=== PATIENT | female | born 1985 | race Two or more races ===

== ENCOUNTER 2017-10-30 06:52 | Outpatient (CLI) | payer MEDICAID | END 2017-10-30 08:21 | disposition home or self-care (01) | LOC: LC 06:52 | PROVIDERS: ATTEND Obstetrics & Gynecology | PROC: 4A1HXCZ Monitoring of Products of Conception, Cardiac Rate, External Approach (ICD-10-PCS; principal; 2017-10-30) | DX: O46.93 Antepartum hemorrhage, unspecified, third trimester (principal); Z3A.39 39 weeks gestation of pregnancy ==

== ENCOUNTER 2017-11-02 04:10 | Outpatient (CLI) | payer MEDICAID ==
--- NOTE | 2017-11-02 04:16 | Non Stress Test Report ---
Non Stress Test Datetime Report Generated by CPN: 11/02/2017 04:15 DEMOGRAPHIC EGA NST: 39.5 INDICATION Indication for Study: Ordered by Provider MONITORING Monitor Explained: Monitor Explained; Test Explained; Patient Verbalized Understanding Time on Monitor: 10/30/2017 06:52 Time off Monitor: 10/30/2017 08:08 NST Duration: 76 NST INTERVENTIONS NST Interventions: PO Hydration; Reposition Patient Physician Notified NST: C Crouch CNM BABY A: [id number] BABY A Movement : Present Contraction Frequency : 8 FHR Baseline : 130 Accelerations : 15X15 Decelerations : None Variability : Moderate 6-25bpm NST Review: Meets Criteria for Reactive NST NST Review and Verified By : Jeannette Overton RN NST Results: Reactive NST REPORT Report Trigger: Send Report
[2017-11-02 05:04] LABS: APPEARANCE,URINE CLEAR; BILIRUBIN,URINE NEGATIVE (NEGATIVE); GLUCOSE, URINE NEGATIVE (NEGATIVE); KETONES,URINE NEGATIVE (NEGATIVE); LEUKOCYTE ESTERASE,URINE NEGATIVE (NEGATIVE); NITRITE,URINE NEGATIVE (NEGATIVE); PROTEIN,URINE NEGATIVE (NEGATIVE); URINE SPECIFIC GRAVITY 1.005; UROBILINOGEN,URINE NEGATIVE mg/dL (<2.0)
[2017-11-02 05:20] LABS: URINE BARBITURATES SCREEN NEGATIVE; URINE METHADONE SCREEN NEGATIVE; URINE OPIATES LOW NEGATIVE; URINE PHENCYCLIDINE SCREEN NEGATIVE
== END 2017-11-02 08:28 | disposition home or self-care (01) ==
LOC: LC 04:10
PROVIDERS: ATTEND Student in an Organized Health Care Education/Training Program
PROC: 4A1HXCZ Monitoring of Products of Conception, Cardiac Rate, External Approach (ICD-10-PCS; principal; 2017-11-02)
DX: O47.1 False labor at or after 37 completed weeks of gestation (principal); O48.0 Post-term pregnancy; Z3A.40 40 weeks gestation of pregnancy
CPT/HCPCS: 59025; 80307; 81001

== ENCOUNTER 2017-11-02 11:42 | Inpatient (IN) | payer MEDICAID ==
[2017-11-02] MEDS ORDERED: PENICILLIN G POTASSIUM 5,000,000 UNIT in DEXTROSE 5%-WATER 100 ML IV ONE (12:20)
[2017-11-02] MEDS ORDERED: PENICILLIN G-K 5 MILLION UNIT VIAL ONE (12:22)
[2017-11-02 12:24] LABS: AMNISURE (ROM) POSITIVE (NEGATIVE)
[2017-11-02 12:27] LABS: APPEARANCE,URINE SLIGHTLY-CLOUDY; BILIRUBIN,URINE NEGATIVE (NEGATIVE); GLUCOSE, URINE NEGATIVE (NEGATIVE); KETONES,URINE NEGATIVE (NEGATIVE); LEUKOCYTE ESTERASE,URINE NEGATIVE (NEGATIVE); NITRITE,URINE NEGATIVE (NEGATIVE); PROTEIN,URINE NEGATIVE (NEGATIVE); URINE SPECIFIC GRAVITY 1.013; UROBILINOGEN,URINE NEGATIVE mg/dL (<2.0)
[2017-11-02] MEDS ORDERED: ONDANSETRON HCL INJ/PF 4 MG/2 ML SDV ONE (12:29)
[2017-11-02 12:40] LABS: URINE BARBITURATES SCREEN NEGATIVE; URINE METHADONE SCREEN NEGATIVE; URINE OPIATES LOW NEGATIVE; URINE PHENCYCLIDINE SCREEN NEGATIVE
[2017-11-02] MEDS ORDERED: EPHEDRINE SULFATE INJ 50 MG/1 ML AMPULE ONE (12:54)
[2017-11-02] MEDS ORDERED: MISOPROSTOL 0.2 MG TABLET ONE ×2 (12:54→17:08)
[2017-11-02] MEDS ORDERED: FENTANYL/BUPIVACAINE/NS/PF 200 MCG/100 ML RTUINJ EPI ONE (12:54)
[2017-11-02] MEDS ORDERED: LIDOCAINE 1% INJ-PF (10 MG/ML) 30 ML SDV ONE (12:54)
[2017-11-02] MEDS ORDERED: BUPIVACAINE HCL 0.25 % INJ/PF (2.5 MG/1 ML) 30 ML VIAL ONE (12:55)
[2017-11-02] MEDS ORDERED: OXYTOCIN/NORMAL SALINE 20 UNIT/1,000 ML RTUINJ ONE ×2 (12:55→16:16)
[2017-11-02] MEDS ORDERED: METHYLERGONOVINE MALEATE INJ/PF 0.2 MG/1 ML AMPULE ONE (12:55)
[2017-11-02] MEDS ORDERED: RINGERS SOLUTION,LACTATED 1,000 ML IV PRN (13:52)
[2017-11-02] MEDS ORDERED: RINGERS SOLUTION,LACTATED 1,000 ML IV ONE (13:52)
[2017-11-02] MEDS ORDERED: BENZOIN/ALOE VERA/STORAX/TOLU TINCTURE 60 ML TP PRN (13:53)
[2017-11-02] MEDS ORDERED: FENTANYL/BUPIVACAINE/NS/PF 200 MCG/100 ML RTUINJ EPI PRN (13:53)
[2017-11-02] MEDS ORDERED: BUPIVACAINE HCL 0.25 % INJ/PF (2.5 MG/1 ML) 30 ML VIAL INFIL ONE (13:53)
[2017-11-02 14:03] LABS: ABSOLUTE LYMPHOCYTES (AUTO) 0.7 10^3/uL (0.5-4.7); ABSOLUTE MONOCYTES (AUTO) 0.2 10^3/uL (0.1-1.4); BASOPHILS % (AUTO) 0.4 % (0-2); EOSINOPHILS % (AUTO) 0.1 % (0-6); HEMATOCRIT 32.1 % (36.0-47.0); HEMOGLOBIN 10.3 g/dL (12.0-15.5); HGB HCT DIFFERENCE -1.2; LYMPHOCYTES % (AUTO) 7.6 % (13-45); MEAN CORPUSCULAR HEMOGLOBIN 24.1 pg (27.0-33.4); MEAN CORPUSCULAR HGB CONC 32.2 g/dL (32.0-36.0); MEAN CORPUSCULAR VOLUME 75 fl (80-97); MONOCYTES % (AUTO) 2.5 % (3-13); RED BLOOD COUNT 4.28 10^6/uL (3.72-5.28); RED CELL DISTRIBUTION WIDTH 20.8 % (11.5-14.0); SEGMENTED NEUTROPHILS % (AUTO) 89.4 % (42-78)
[2017-11-02] MEDS ORDERED: DIPHENHYDRAMINE HCL 50 MG/ML VIAL IV ONE (14:58)
[2017-11-02] MEDS ORDERED: DIPHENHYDRAMINE HCL 50 MG/ML VIAL ONE (15:06)
[2017-11-02] MEDS ORDERED: PENICILLIN G POTASSIUM 2,500,000 UNIT in DEXTROSE 5%-WATER 50 ML IV SCH (16:21)
[2017-11-02] MEDS ORDERED: MEASLES,MUMPS&RUBELLA VACC/PF 0.5 ML VIAL SUBCUT PRN (17:27)
[2017-11-02] MEDS ORDERED: ZOLPIDEM TARTRATE 5 MG TABLET PO PRN (17:27)
[2017-11-02] MEDS ORDERED: OXYTOCIN/NORMAL SALINE 20 UNIT/1,000 ML RTUINJ IV PRN (17:27)
[2017-11-02] MEDS ORDERED: DIPH/PERTUSS(ACELL)/TETANUS VAC/PF 0.5 ML SYR (>=10YO) IM PRN (17:27)
[2017-11-02] MEDS ORDERED: DIBUCAINE 1% OINTMENT 28 GM TP PRN (17:27)
[2017-11-02] MEDS ORDERED: BENZOCAINE/MENTHOL AEROSOL SPRAY 56 ML TOP PRN (17:27)
[2017-11-02] MEDS ORDERED: ACETAMINOPHEN WITH CODEINE #3 TABLET PO PRN (17:27)
--- NOTE | 2017-11-02 17:43 | Warning Signs in Babies ---
VOD Warning Signs Datetime Report Generated by [facility]: 11/02/2017 17:43 VOD#608 -Warning Signs in Babies: Viewed with Parent(s)/Family (11/02/2017 17:42:MIGUEL Delgado)
[2017-11-02] MEDS ORDERED: BENZOCAINE/MENTHOL AEROSOL SPRAY 56 ML ONE (17:48)
[2017-11-02] MEDS ORDERED: ACETAMINOPHEN 325 MG TABLET ONE (17:57)
[2017-11-02] MEDS ORDERED: ACETAMINOPHEN 325 MG TABLET PO ONE (17:58)
--- NOTE | 2017-11-02 18:04 | Delivery Summary ---
Del Sum A-C Datetime Report Generated by CPN: 11/02/2017 18:04 DELIVERY PERSONNEL DELIVERY PERSONNEL: [id number] Delivery Doctor:: Maye Damian CNM Labor and Delivery Nurse:: MIGUEL Delgado Labor and Delivery Nurse:: Isabella Otero RN Nursery Nurse:: Juana Lawton RN Lump Receiver/FAMILY LAW SPECIALIST: Deanna Hortona, ST MATERNAL INFORMATION Delivery Anesthesia: Epidural Medications After Delivery: Pitocin Drip 20 Units/1000ml NSS; Other-Please Comment Meds After Delivery Comment: CYTOTEC 1000MG UT BY CNM Estimated Blood Loss (ml): 300 Maternal Complications: None Provider Comments: SVDVF over 1* perineal laceration. head delivered, shoulders unable to deliver with gentle traction. Pt in Mariel, head lowered, supapubic pressure applied by Sunita Connor RN, stopped, Modified Chapman Maneuver, then suprapubic pressure again with delivery of anterior shoulder followed by post shoulder/body and cord. stimulated, vigorous. Cord clamped x 2 cut per FOB. Bleeding noted prior to delivery of placenta. Placenta via isaac with trailing membranes. Cytotec 1000mcg placed rectally, FF immediately and hemostasis acheived. EBL 300. Apgars 8,9. LABOR SUMMARY EDC: 11/01/2017 00:00 No. Babies in Womb: 1 Attempted: No Labor Anesthesia: Epidural LABOR INFORMATION Reason for Induction: Not Applicable Onset of Labor: 11/02/2017 12:17 Oxytocin: N/A Group B Beta Strep: positive Antibiotics # of Doses: 1 Antibiotics Time of Last Dose: 1239 Name of Antibiotic Given: PENICILLIN G Steroids Given: None Reason Steroids Not Administered: Not Applicable MEMBRANES Membranes Rupture Method: Spontaneous Rupture of Membranes: 11/02/2017 10:30 Length of Rupture (hr): 5.52 Amniotic Fluid Color: Clear Amniotic Fluid Amount: Moderate Amniotic Fluid Odor: Normal STAGES OF LABOR Stage 3 hr: 0 Stage 3 min: 2 Total Time in Labor hr: 3 Total Time in Labor min: 46 VAGINAL DELIVERY Episiotomy: None Laceration #1: None Laceration Extension #1: N/A Other Laceration: SUPERFICIAL ABRASIONS Laceration Repair: No Laceration Repair Note: no repairs needed Sponge Count Correct: N/A Sharps Count Correct: N/A CSECTION DELIVERY Primary Indication: N/A Secondary Indication: N/A CSection Incidence: N/A Labor: N/A Elective: N/A CSection Incision: N/A BABY A INFORMATION Infant Delivery Date/Time: 11/02/2017 16:01 Method of Delivery: Vaginal Born in Route : No : N/A Forceps: N/A Vacuum Extraction: N/A Shoulder Dystocia : Yes SHOULDER DYSTOCIA BABY A Delivery of Head: 11/02/2017 15:59 Time Head to Delivery : 2.0 1st Intervention to Resolve: McRobert's Maneuver 2nd Intervention to Resolve: Suprapubic Pressure 3rd Intervention to Resolve: Chapman Maneuver 4th Intervention to Resolve: Suprapubic Pressure Verify NO Fundal Pressure: No Fundal Pressure Applied Arm Under Symphisis at Del: Left PRESENTATION/POSITION BABY A Presentation: Cephalic Cephalic Presentation: Vertex Vertex Position: Right Occipital Anterior Breech Presentation: N/A PLACENTA INFORMATION BABY A Placenta Delivery Time : 11/02/2017 16:03 Placenta Method of Delivery: Spontaneous Placenta Status: Delivered SCORES BABY A Heart Rate 1 min: >100 bpm Resp Effort 1 min: Good Cry Reflex Irritability 1 min: Cough or Sneeze or Pulls Away Muscle Tone 1 min: Active Motion Color 1 min: Blue/Pale Resuscitation Effort 1 min: Tactile Stimulation SCORE 1 MIN: 8 Heart Rate 5 min: >100 bpm Resp Effort 5 min: Good Cry Reflex Irritability 5 min: Cough or Sneeze or Pulls Away Muscle Tone 5 min: Active Motion Color 5 min: Body [place], Extremities Blue Resuscitation Effort 5 min: Tactile Stimulation SCORE 5 MIN: 9 INFORMATION BABY A Gestational Age at Delivery: 40.1 Gestational Status: Full Term- 39- 40.6 Weeks Infant Outcome : Liveborn Condition : Stable Sex: Female IDENTIFICATION BABY A Infant Verification Date/Time: 11/02/2017 16:42 ID Band Number: [id number] Mother's Name Verified: Yes RN Verifying : [place] [facility] Additional Verifying Personnel: Annie Otero [facility] WEIGHT/LENGTH BABY A Birthweight (gm): 4170 Infant Weight (lb): 9 Infant Weight (oz): 3 Length (in): 21.75 Infant Length (cm): 55.25 CORD INFORMATION BABY A No. Cord Vessels: 3 Nuchal Cord : N/A Cord Blood Taken: Yes-For Eval (Mom's Blood Type - or O+) Infant Suction: Mouth; Nose ASSESSMENT BABY A Infant Complications: Meconium; Shoulder Dystocia Complications- Other: terminal mec Physical Findings at Delivery: Within Normal Limits Respirations: Appears Normal Skin to Skin: Yes Skin to Skin Time (min): 60 Transformation Coach/ALS Called : No Care By: Duarte BOLAND RN Transferred To: Remains with Mother BABY B INFORMATION : N/A SIGNATURES Assignment: Angel Rodney MD Signature: with User ID: [email or web address] : with User ID: [email or web address] : I was personally available for consultation and serving as supervising physician for the P.
--- NOTE | 2017-11-02 18:42 | Admission Physical ---
Datetime Report Generated by CPN: 11/02/2017 18:41 CURRENT ADMISSION Chief Complaint: Uterine Contractions; Suspected Ruptured Membranes Indication for Induction: Term, Intrauterine ; Active Labor; Ruptured Membranes Admit Plan: Initiate Labor Protocol ALLERGIES Medication Allergies: No Medication Allergies: No Known Allergies (11/02/2017) Medication Allergies: No Known Allergies (10/30/2017) Latex: No Latex Allergies Food Allergies: none Environmental Allergies: indoor/outdoor OBSTETRICAL HISTORY EDC: 11/01/2017 00:00 : 2 Para: 1 Term: 1 : 0 SAB: 0 IAB: 0 Ectopic: 0 Livin Cesareans: 0 VBACs: 0 Multiple Births: 0 Gestational Diabetes: No Rh Sensitization: No Incompetent Cervix: No JACINTO: No Infertility: No ART Treatment: No Uterine Anomaly: No IUGR: No Hx Previous C/S: No Macrosomia: No Hx Loss/Stillborn: No PIH: No Hx : No Placenta Previa/Abruption: No Depression/PP Depression: No PTL/PROM: No Post Hemorrhage: Yes Current Procedures: Ultrasound; NST Obstetrical History Comments: G1- poly, anemia with PPH, transfusion G2- current SEE RECORDS Alcohol: No Marijuana : No Cocaine: No Other Illicit Drugs: No Cigarettes: Never Smoker. [id number] MEDICAL HISTORY Diabetes: No Blood Transfusion: Yes Pulmonary Disease (Asthma, TB): No Breast Disease: No Hypertension: No Kennel Helper Surgery: No Heart Disease: No Hosp/Surgery: No Autoimmune Disorder: No Anesthetic Complications: No Kidney Disease: No Abnormal Pap Smear: No Neuro/Epilepsy: No Psychiatric Disorders: No Other Medical Diseases: No Hepatitis/Liver Disease: No Significant Family History: No Varicosities/Phlebitis: No Trauma/Violence : No Thyroid Dysfunction: No INFECTIOUS HISTORY Gonorrhea: No Genital Herpes: No Chlamydia: No Tuberculosis: No Syphilis: No Hepatitis: No HIV/AIDS Exposure: No Rash or Viral Illness: No HPV: No PHYSICAL EXAM General: Normal HEENT: Deferred Neurologic: Deferred Thyroid: Deferred Heart: Normal Lungs: Normal Breast: Deferred Back: Deferred Abdomen: Normal Genitourinary Exam: Normal Extremities: Normal DTRs: Deferred Pelvic Type: Adequate Physical Exam Comments: cervix per RN Vital Signs: Reviewed VAGINAL EXAM Dilatation: 6 MEMBRANES Membranes: Ruptured FETUS A EGA: 40.1 Monitoring: External US FHR- Baseline: 150 Variability: Moderate 6-25bpm Decelerations: None Presentation: Vertex Admit Comment: GBS prophylaxis started, desires epidural Close interval PLANS FOR LABOR AND DELIVERY Labor and Delivery: None Pain Management: Epidural Feeding Preference: Both Benefit of Breast Feed Discussed: Yes Circumcision: N/A INFORMED CONSENT Assignment: Angel Rodney MD Signature: with User ID: [email or web address] : with User ID: [email or web address]
[2017-11-02] MEDS: FERROUS SULFATE 325 MG TABLET PO SCH (19:33)
[2017-11-02] MEDS: DOCUSATE SODIUM 100 MG CAPSULE PO SCH (19:33)
[2017-11-02] MEDS: CEFTRIAXONE 1 GM/D5W RTU 1 GM/50 ML RTUPB IV SCH (19:51)
[2017-11-02] MEDS ORDERED: IBUPROFEN 800 MG TABLET PO SCH (22:00)
[2017-11-03] MEDS: ACETAMINOPHEN WITH CODEINE #3 TABLET PO PRN (07:48)
[2017-11-03 08:26] LABS: RED CELL DISTRIBUTION WIDTH 21.2 % (11.5-14.0)
[2017-11-03 08:28] LABS: HEMATOCRIT 28.8 % (36.0-47.0); HEMOGLOBIN 9.3 g/dL (12.0-15.5); HGB HCT DIFFERENCE -0.9; MEAN CORPUSCULAR HEMOGLOBIN 24.5 pg (27.0-33.4); MEAN CORPUSCULAR HGB CONC 32.3 g/dL (32.0-36.0); MEAN CORPUSCULAR VOLUME 76 fl (80-97); RED BLOOD COUNT 3.81 10^6/uL (3.72-5.28); WHITE BLOOD COUNT 9.8 10^3/uL (4.0-10.5)
[2017-11-03] MEDS: SENNOSIDES/DOCUSATE 8.6-50 MG 1 EACH TABLET PO SCH (09:28)
[2017-11-03] MEDS: DOCUSATE SODIUM 100 MG CAPSULE PO SCH ×2 (09:28→17:41)
[2017-11-03] MEDS: FERROUS SULFATE 325 MG TABLET PO SCH ×2 (09:28→17:41)
[2017-11-03] MEDS: PRENATAL VITAMIN W DHA CAPSULE PO SCH (09:28)
--- NOTE | 2017-11-03 09:55 | PDOC PROGRESS REPORT ---
Subjective-OB Subjective: Post Delivery Day: 32 year old. Denies any needs at this time reports without difficulty, bleeding slowing, tolerating diet and pain controlled with current meds. Physical Exam (OB) Vital Signs: Temp Pulse Resp BP Pulse Ox 97.6 F 77 16 112/70 98 11/03/17 08:00 11/03/17 08:00 11/03/17 08:00 11/03/17 08:00 11/03/17 08:00 Intake & Output 11/02/17 11/03/17 11/04/17 06:59 06:59 06:59 Intake Total 1250 Output Total 500 Balance 750 Weight 89.65 kg - Abdomen Description: Soft, Round Fundal Description: Firm, Midline Fundal Height: u/u - u/2 - Abdominal Tenderness: Nontender - Extremities Lower extremities: Marilee's sign - neg Calf: Normal, Nontender Objective-Diagnostic Laboratory: 11/03/17 08:18 11/02/17 11/02/17 11/02/17 12:09 12:57 12:57 WBC Cancelled RBC Cancelled Hgb Cancelled Hct Cancelled MCV Cancelled MCH Cancelled MCHC Cancelled RDW Cancelled Plt Count Cancelled Seg Neutrophils % Cancelled Lymphocytes % Cancelled Monocytes % Cancelled Eosinophils % Cancelled Basophils % Cancelled Absolute Neutrophils Cancelled Absolute Lymphocytes Cancelled Absolute Monocytes Cancelled Absolute Eosinophils Cancelled Absolute Basophils Cancelled Urine Color YELLOW Urine Appearance SLIGHTLY-CLOUDY Urine pH 6.0 Ur Specific Davy 1.013 Urine Protein NEGATIVE Urine Glucose (UA) NEGATIVE Urine Ketones NEGATIVE Urine Blood MODERATE H Urine Nitrite NEGATIVE Ur Leukocyte Esterase NEGATIVE Blood Type O POSITIVE Antibody Screen NEGATIVE 11/02/17 11/03/17 13:56 08:18 WBC 9.0 9.8 RBC 4.28 3.81 Hgb 10.3 L 9.3 L Hct 32.1 L 28.8 L MCV 75 L 76 L MCH 24.1 L 24.5 L MCHC 32.2 32.3 RDW 20.8 H 21.2 H Plt Count 105 L 103 L Seg Neutrophils % 89.4 H Lymphocytes % 7.6 L Monocytes % 2.5 L Eosinophils % 0.1 Basophils % 0.4 Absolute Neutrophils 8.0 Absolute Lymphocytes 0.7 Absolute Monocytes 0.2 Absolute Eosinophils 0.0 Absolute Basophils 0.0 Urine Color Urine Appearance Urine pH Ur Specific Davy Urine Protein Urine Glucose (UA) Urine Ketones Urine Blood Urine Nitrite Ur Leukocyte Esterase Blood Type Antibody Screen Assessment and Plan(PN) - Time Spent with Patient Time with patient: Less than 15 minutes Medications reviewed and adjusted accordingly: Yes - Disposition Anticipated Discharge: Home Within: within 24 hours
[2017-11-03] MEDS: CEFTRIAXONE 1 GM/D5W RTU 1 GM/50 ML RTUPB IV SCH (21:05)
[2017-11-04 09:15] LABS: ABSOLUTE EOSINOPHILS # (AUTO) 0.1 10^3/uL (0.0-0.6); ABSOLUTE LYMPHOCYTES (AUTO) 1.3 10^3/uL (0.5-4.7); ABSOLUTE MONOCYTES (AUTO) 0.2 10^3/uL (0.1-1.4); ABSOLUTE NEUT (AUTO) 5.9 10^3/uL (1.7-8.2); BASOPHILS % (AUTO) 0.7 % (0-2); EOSINOPHILS % (AUTO) 1.2 % (0-6); HEMATOCRIT 30.3 % (36.0-47.0); HEMOGLOBIN 9.6 g/dL (12.0-15.5); HGB HCT DIFFERENCE -1.5; LYMPHOCYTES % (AUTO) 17.5 % (13-45); MEAN CORPUSCULAR HEMOGLOBIN 24.1 pg (27.0-33.4); MEAN CORPUSCULAR HGB CONC 31.8 g/dL (32.0-36.0); MEAN CORPUSCULAR VOLUME 76 fl (80-97); MONOCYTES % (AUTO) 2.8 % (3-13); RED CELL DISTRIBUTION WIDTH 21.2 % (11.5-14.0); SEGMENTED NEUTROPHILS % (AUTO) 77.8 % (42-78); WHITE BLOOD COUNT 7.5 10^3/uL (4.0-10.5)
[2017-11-04] MEDS: DOCUSATE SODIUM 100 MG CAPSULE PO SCH (09:18)
[2017-11-04] MEDS: SENNOSIDES/DOCUSATE 8.6-50 MG 1 EACH TABLET PO SCH (09:18)
[2017-11-04] MEDS: PRENATAL VITAMIN W DHA CAPSULE PO SCH (09:18)
[2017-11-04] MEDS: FERROUS SULFATE 325 MG TABLET PO SCH (09:18)
[2017-11-04] MEDS: ACETAMINOPHEN WITH CODEINE #3 TABLET PO PRN (09:28)
--- NOTE | 2017-11-04 10:20 | PDOC DISCHARGE SUMMARY ---
Final Diagnosis Discharge Date: 11/04/17 - Final Diagnosis (1) Thrombocytopenia Is this a current diagnosis for this admission?: Yes (2) Shoulder dystocia, delivered Is this a current diagnosis for this admission?: Yes (3) Vaginal delivery Is this a current diagnosis for this admission?: Yes (4) Shoulder (girdle) dystocia during labor and delivery, delivered Is this a current diagnosis for this admission?: Yes Discharge Data - Discharge Medication Prescriptions: Acetaminophen with Codeine [Tylenol #3 Tablet] 1 - 2 each PO Q4HP PRN #30 tablet PRN Reason: Home Medications: No122/Iron/Folic Acid [ Multi Tablet] 1 tab PO DAILY 10/30/17 Acetaminophen with Codeine [Tylenol #3 Tablet] 1 - 2 each PO Q4HP PRN #30 tablet 11/04/17 Docusate Sodium [Colace 100 mg Capsule] 100 mg PO BID capsule 11/04/17 Ferrous Sulfate [Feosol 325 mg Tablet] 325 mg PO BID tablet 11/04/17 Reason(s) for Admission: Onset of Labor Procedures: NST Intrapartum Procedure(s): Spontaneous Vaginal Delivery - with 2 min shoulder dystocia Complication(s): Laceration-Perineal Laceration-Degree: 1st - Diagnosis Test Laboratory: Temp Pulse Resp BP Pulse Ox 98.0 F 104 H 18 117/70 98 11/04/17 09:02 11/04/17 09:02 11/04/17 09:02 11/04/17 09:02 11/04/17 09:02 11/02/17 11/02/17 11/02/17 12:09 12:57 13:56 RBC Cancelled 4.28 Hgb Cancelled 10.3 L Hct Cancelled 32.1 L Urine Opiates Screen NEGATIVE 11/03/17 11/04/17 11/04/17 08:18 06:40 09:09 RBC 3.81 Cancelled 4.00 Hgb 9.3 L Cancelled 9.6 L Hct 28.8 L Cancelled 30.3 L Urine Opiates Screen - Discharge information/Instructions Discharge Activity: Balance Activity w/Rest, Pelvic Rest Discharge Diet: Regular Disposition: HOME, SELF-CARE Follow up with: [facility] in: 1, Weeks - check bleeding and CBC for low platelets after delivery.
--- NOTE | 2017-11-04 10:54 | Progress Note ---
Provider Note Provider Note: discussed with pt and boyfriend implications of shoulder dystocia and need to notify OB provider on next . pt and boyfriend verbalized understanding.
[2017-11-04 14:44] VITALS: BP 112/70
== END 2017-11-04 18:00 | disposition home or self-care (01) | DRG 775 ==
LOC: LC 11:42 → LR 12:22 → 2S 18:25
PROVIDERS: ADMIT Obstetrics & Gynecology; ATTEND Obstetrics & Gynecology
PROC: 10E0XZZ Delivery of Products of Conception, External Approach (ICD-10-PCS; principal; 2017-11-02)
PROC: 4A1HXCZ Monitoring of Products of Conception, Cardiac Rate, External Approach (ICD-10-PCS; 2017-11-02)
DX: O99.824 Streptococcus B carrier state complicating childbirth (principal); O99.12 Other diseases of the blood and blood-forming organs and certain disorders involving the immune mechanism complicating childbirth; D69.6 Thrombocytopenia, unspecified; O77.0 Labor and delivery complicated by meconium in amniotic fluid; O66.0 Obstructed labor due to shoulder dystocia; O70.0 First degree perineal laceration during delivery; Z3A.40 40 weeks gestation of pregnancy; Z37.0 Single live birth
CPT/HCPCS: 36415; 80307; 81005; 84112; 85025; 85027; 86592; 86850; 86900; 86901; 88307; J0696; J1200; J2210; J2405; J2540; J2590; J3490